=== PATIENT | female | born 1945 | race Caucasian/White ===

== ENCOUNTER → 2017-06-02 | Outpatient (CLI) | payer MEDICARE ==
[2017-06-02 10:46] LABS: Body Fluid Crystals NEG (NEGATIVE)
[2017-06-02 11:09] LABS: WBC Count, Synovial Fluid 1843 /mm3 (0-180)
[2017-06-02 11:18] LABS: Color, Synovial Fluid Yellow (None-P Yel); RBC Count, Synovial Fluid 2035 /mm3 (0-0)
[2017-06-02 11:19] LABS: Appearance, Synovial Fluid Hazy (Clear)
[2017-06-02 11:38] LABS: Lymphs, Synovial Fluid 20 % (0-15); Monocytes/Macrophages, Synovia 24 % (0-65); Neutrophils, Synovial Fluid 56 % (0-24)
== END ==
LOC: LAB 10:31 → LAB SHORT 10:31
PROVIDERS: Orthopaedic Surgery
DX: M25.561 Pain in right knee (principal)
CPT/HCPCS: 87070; 87075; 87205; 89051; 89060

== ENCOUNTER → 2017-07-15 | Outpatient (CLI) | payer MEDICARE ==
[2017-07-16 09:31] LABS: Candida species (DNA Probe) Negative (NEGATIVE); G. vaginalis (DNA Probe) Negative (NEGATIVE); T. vaginalis (DNA Probe) Negative (NEGATIVE)
== END ==
LOC: LAB SHORT 11:49 → LAB 11:49
PROVIDERS: Nurse Practitioner Obstetrics & Gynecology
DX: N76.0 Acute vaginitis (principal)
CPT/HCPCS: 87480; 87510; 87660

== ENCOUNTER 2018-06-09 08:31 | Day surgery (SDC) | payer MEDICARE ==
[~2018-06-09] VITALS: Ht 165.1 cm; Wt 56.4 kg
[~2018-06-09 08:31] MED LIST: ESTRADIOL CREAM TD; LISI5 PO; PRED1 PO
--- NOTE | 2018-06-09 10:12 | NUR ---
Ambulatory in Day Surgery. Patient states colon prep results clear. History, Chart, Medications and Allergies reviewed before start of procedure. Lungs clear T/O to Auscultation. Patient confirms NPO status and agrees with scheduled surgery. Pre-Op teaching done. Pt verbalizes understanding. Patient States Post-Procedure ride home has been arranged. Pt's , David, at bedside.
--- NOTE | 2018-06-09 10:26 | NUR ---
06/09/18 1026 Kerwin Amaya History, Chart, Medications and Allergies reviewed before start of procedure.MONITOR INTACT WITH CONTINUOUS PULSE OXIMETRY AND INTERMITTENT BP.3-LEAD EKG REVIEWED WITH PHYSICIAN PRIOR TO START OF PROCEDURE.O2 VIA N/C INTACT THROUGHOUT SEDATION/PROCEDURE. Patient confirms NPO status and agrees with scheduled surgery.PATIENT DETERMINED TO BE ASA APPROPRIATE FOR PROPOFOL SEDATION PRIOR TO START OF PROCEDURE BY DR. BEACH.
[2018-06-09 11:49] LABS: Creatinine, Blood 0.82 mg/dL (0.40-1.00)
== END 2018-06-09 22:40 | disposition home or self-care (01) ==
LOC: ORSCMMR 08:31 → ORD 10:30 → ORSCMMR 10:30
PROVIDERS: Internal Medicine Gastroenterology
PROC: 0DBK8ZX Excision of Ascending Colon, Via Natural or Artificial Opening Endoscopic, Diagnostic (ICD-10-PCS; principal; 2018-06-09 10:30)
PROC: 0DBB8ZX Excision of Ileum, Via Natural or Artificial Opening Endoscopic, Diagnostic (ICD-10-PCS; principal; 2018-06-09 10:30)
PROC: 0DBL8ZX Excision of Transverse Colon, Via Natural or Artificial Opening Endoscopic, Diagnostic (ICD-10-PCS; principal; 2018-06-09 10:30)
PROC: 0DBH8ZX Excision of Cecum, Via Natural or Artificial Opening Endoscopic, Diagnostic (ICD-10-PCS; principal; 2018-06-09 10:30)
PROC: 0DBN8ZX Excision of Sigmoid Colon, Via Natural or Artificial Opening Endoscopic, Diagnostic (ICD-10-PCS; principal; 2018-06-09 10:30)
DX: R19.4 Change in bowel habit (principal); K64.4 Residual hemorrhoidal skin tags; K64.8 Other hemorrhoids; Z86.010 Personal history of colon polyps; I10 Essential (primary) hypertension; Z79.899 Other long term (current) drug therapy
CPT/HCPCS: 82565; 84520; 88305; J2704; J7120

== ENCOUNTER → 2018-11-16 | Outpatient (CLI) | payer MEDICARE ==
[2018-11-29 09:07] LABS: CA OXALATE DIHYDRATE 85 % (.); CA OXALATE MONOHYDR. 12 % (.); COLOR Tan (.); WEIGHT 3.9 mg (.)
== END | disposition home or self-care (01) ==
LOC: LAB SHORT 09:30 → LAB 09:30
PROVIDERS: Family Medicine
DX: N20.0 Calculus of kidney (principal)
CPT/HCPCS: 82360

== ENCOUNTER → 2018-12-31 | Outpatient (CLI) | payer MEDICARE | END | disposition home or self-care (01) | LOC: LAB SHORT 09:30 → LAB 09:30 | DX: R19.7 Diarrhea, unspecified (principal) | CPT/HCPCS: 87015; 87045; 87046; 87205; 87899 ==

== ENCOUNTER → 2020-04-10 | Outpatient (CLI) | payer MEDICARE ==
[~2020-04-10] MED LIST changes: +Aspir 8181 MG PO; +CALCIUM 600 +1 EA11 PO; +DIPATR PO; +METO25ER PO; +OMEP20ER PO; +VITAMIN D32000 UNI1 PO
[2020-04-11 06:24] LABS: Candida species (DNA Probe) Negative (NEGATIVE); G. vaginalis (DNA Probe) Negative (NEGATIVE); T. vaginalis (DNA Probe) Negative (NEGATIVE)
== END ==
LOC: LAB SHORT 11:49 → LAB 11:49
PROVIDERS: Family Medicine
DX: N76.0 Acute vaginitis (principal)
CPT/HCPCS: 87480; 87510; 87660

== ENCOUNTER 2020-04-16 10:29 | Day surgery (SDC) | payer MEDICARE ==
[~2020-04-16 10:29] MED LIST changes: -CALCIUM 600 +1 EA11 PO; -DIPATR PO; -OMEP20ER PO; -VITAMIN D32000 UNI1 PO
[2020-04-16] MEDS ORDERED: DIPATR PO (10:55)
[2020-04-16] MEDS ORDERED: VITAMIN D32000 UNI1 PO (10:55)
[2020-04-16] MEDS ORDERED: CALCIUM 600 +1 EA11 PO (10:56)
[2020-04-16] MEDS ORDERED: OMEP20ER PO (11:01)
--- NOTE | 2020-04-16 13:11 | NUR ---
Ambulated to cath for coronary angiogram.
--- NOTE | 2020-04-16 14:53 | NUR ---
DR. WOOD HERE TO DISCUSS FINDINGS AND MEDICATION CHANGES.
--- NOTE | 2020-04-16 15:11 | NUR ---
DISCHARGED INSTRUCTIONS GIVEN WITH VERBAL AND WRITTEN UNDERSTANDING.
--- NOTE | 2020-04-16 15:30 | NUR ---
2 CC AIR REMOVED FROM TR BAND. NO BLEEDING AT SITE.
--- NOTE | 2020-04-16 15:38 | NUR ---
REMAINDER OF AIR REMOVED FROM TR BAND. TO ROOM AIR. NO BLEEDING AT SITE.
--- NOTE | 2020-04-16 16:02 | NUR ---
AMBULATED TO BATHROOM TOLERATED WELL. DRESSED FOR DISCHARGE.
--- NOTE | 2020-04-16 16:14 | NUR ---
IV REMOVED INTACT. 2X2, COBAN AND MANUAL PRESSURE APPLIED.
--- NOTE | 2020-04-16 16:27 | NUR ---
TR BAND REMOVED. NO BLEEDING AT SITE. CLOTH DOT, IMMOBILIZER AND SLING APPLIED.
--- NOTE | 2020-04-16 16:53 | NUR ---
patient discharged home A&O. denies pain. right radial site soft and nontender. cloth dot dressing dry and intact. right arm in sling for comfort and support. transferred via wheelchair to car where was waiting.
== END 2020-04-16 15:00 | disposition home or self-care (01) ==
LOC: MHTC 10:29
DX: I20.8 Other forms of angina pectoris (principal); M35.3 Polymyalgia rheumatica; I10 Essential (primary) hypertension; I45.2 Bifascicular block; Z88.1 Allergy status to other antibiotic agents; Z88.0 Allergy status to penicillin; Z88.2 Allergy status to sulfonamides
CPT/HCPCS: 93458; 99152; C1769; C1894; J1644; J2250; J3010; J7030; J7050; Q9967

== ENCOUNTER → 2021-05-24 | Outpatient (CLI) | payer MEDICARE ==
[~2021-05-24] MED LIST changes: +CALCIUM 600 +1 EA11 PO; +DIPATR PO; +OMEP20ER PO; +VITAMIN D32000 UNI1 PO
[2021-05-24 14:00] LABS: Candida species (DNA Probe) Negative (NEGATIVE); G. vaginalis (DNA Probe) Negative (NEGATIVE); T. vaginalis (DNA Probe) Negative (NEGATIVE)
== END | disposition home or self-care (01) ==
LOC: LAB 10:44 → LAB SHORT 10:44
PROVIDERS: Obstetrics & Gynecology
DX: N76.0 Acute vaginitis (principal)
CPT/HCPCS: 87480; 87510; 87660

== ENCOUNTER → 2021-11-01 | Outpatient (CLI) | payer MEDICARE | LOC: PLD 14:18 → LAB SHORT 14:18 | DX: D48.5 Neoplasm of uncertain behavior of skin (principal) | CPT/HCPCS: 88312 ==

== ENCOUNTER 2023-07-28 07:03 | Day surgery (SDC) | payer MEDICARE ==
[~2023-07-28] VITALS: Ht 162.6 cm; Wt 49.2 kg
[2023-07-28] VITALS (23 sets, daily range): BP systolic 103–164; BP diastolic 64–103
[~2023-07-28 07:03] MED LIST changes: +Benzocaine Oral Spray 0.5ML UD ONE; +FAMO20 PO; +Lactated Ringer's 1,000 ML IV SCH; +NEBI10 PO; +PANT20 PO
--- NOTE | 2023-07-28 07:43 | NUR ---
Ambulatory in Day Surgery. History, Chart, Medications and Allergies reviewed before start of procedure. Lungs clear T/O to Auscultation. Patient confirms NPO status and agrees with scheduled surgery. Patient States Post-Procedure ride home has been arranged.
[2023-07-28] MEDS ORDERED: propofoL 40 ML IV ONE (08:04)
--- NOTE | 2023-07-28 08:22 | NUR ---
07/28/23 0822 John Amaya HISTORY, CHART, MEDICATIONS AND ALLERGIES REVIEWED BEFORE START OF PROCEDURE. PATIENT CONFIRMS NPO STATUS AND AGREES WITH SCHEDULED PROCEDURE. 3-LEAD EKG REVIEWED WITH PHYSICIAN PRIOR TO START OF PROCEDURE. MONITOR INTACT WITH CONTINUOUS PULSE OXIMETRY,CAPNOGRAPHY, 3-LEAD EKG, INTERMITTENT BP. SUPPLEMENTAL O2 TO BE TITRATED THROUGHOUT PROCEDURE TO MAINTAIN O2 SATURATION ABOVE 90%. PATIENT DETERMINED TO BE ASA APPROPRIATE FOR PROPOFOL SEDATION PRIOR TO START OF PROCEDURE BY DR. BEACH. Bite Block Placed. HURRICAINE SPRAY TO OROPHARYX.
--- NOTE | 2023-07-28 09:29 | NUR ---
Discharge instructions reviewed with patient. Patient verbalizes understanding. Copy given to patient to take home. Discharged via wheelchair to private car for ride home.VSS
== END 2023-07-28 09:30 | disposition home or self-care (01) ==
LOC: ORSCMMR 07:03 → ORD 08:00 → ORSCMMR 08:00
PROVIDERS: Internal Medicine Gastroenterology
PROC: 0DB58ZX Excision of Esophagus, Via Natural or Artificial Opening Endoscopic, Diagnostic (ICD-10-PCS; principal; 2023-07-28 08:00)
PROC: 0D758ZZ Dilation of Esophagus, Via Natural or Artificial Opening Endoscopic (ICD-10-PCS; principal; 2023-07-28 08:00)
PROC: 0DBK8ZX Excision of Ascending Colon, Via Natural or Artificial Opening Endoscopic, Diagnostic (ICD-10-PCS; principal; 2023-07-28 08:00)
PROC: 0DBM8ZX Excision of Descending Colon, Via Natural or Artificial Opening Endoscopic, Diagnostic (ICD-10-PCS; principal; 2023-07-28 08:00)
PROC: 0DB48ZX Excision of Esophagogastric Junction, Via Natural or Artificial Opening Endoscopic, Diagnostic (ICD-10-PCS; principal; 2023-07-28 08:00)
PROC: 0DBL8ZX Excision of Transverse Colon, Via Natural or Artificial Opening Endoscopic, Diagnostic (ICD-10-PCS; principal; 2023-07-28 08:00)
DX: R13.14 Dysphagia, pharyngoesophageal phase (principal); K21.00 Gastro-esophageal reflux disease with esophagitis, without bleeding; Z12.11 Encounter for screening for malignant neoplasm of colon; K63.5 Polyp of colon; Z86.010 Personal history of colon polyps; I10 Essential (primary) hypertension; M35.3 Polymyalgia rheumatica; Z79.82 Long term (current) use of aspirin; Z79.899 Other long term (current) drug therapy; K44.9 Diaphragmatic hernia without obstruction or gangrene
CPT/HCPCS: 88305; A9270; C1726; J2704; J7120